=== PATIENT | female | born 1940 ===

== ENCOUNTER → 2019-04-09 | Outpatient (REF) | payer BC, MEDICARE ==
[2019-04-09 14:32] LABS: FREE T4 0.92 NG/DL (0.76-1.46)
[2019-04-09 14:34] LABS: FOLATE > 24.0 NG/ML
[2019-04-09 15:15] LABS: VITAMIN B12 LEVEL 149 PG/ML
[2019-04-13 08:09] LABS: VITAMIN E(ALPHA TOCOPHEROL) 10.2 mg/L (9.0-29.0); VITAMIN E(GAMMA TOCOPHEROL) 1.5 mg/L (0.5-4.9)
[2019-04-15 08:08] LABS: VITAMIN B1 LEVEL WHOLE BLOOD 109.5 nmol/L (66.5-200.0); VITAMIN B6,PYRIDOXAL PHOSPHATE 2.7 ug/L (2.0-32.8)
== END ==
LOC: M LABNEURO 11:06
PROVIDERS: ATTEND Psychiatry & Neurology Neurology
DX: G62.9 Polyneuropathy, unspecified (principal); E53.8 Deficiency of other specified B group vitamins

== ENCOUNTER → 2019-06-16 | Outpatient (REF) | payer BC, MEDICARE ==
[2019-06-16 14:07] LABS: BASO % 0.3 % (0.0-1.0); EOS # 0.1 10^3/uL (0.0-0.5); EOS % 1.5 % (0.0-3.0); HEMATOCRIT 39.8 % (36.0-47.0); HEMOGLOBIN 12.2 g/dl (12.0-15.5); LYMPH # 1.2 10^3/uL (1.5-5.0); LYMPH % 17.4 % (24.0-44.0); MEAN CORPUSCULAR HGB CONC 30.7 g/dl (32.0-36.5); MEAN CORPUSCULAR VOLUME 97.8 fl (80.0-96.0); MONO # 0.4 10^3/uL (0.0-0.8); MONO % 6.1 % (0.0-5.0); NEUTROPHILS # 5.1 10^3/uL (1.5-8.5); NEUTROPHILS % 74.4 % (36.0-66.0); PLATELET COUNT, AUTOMATED 207 10^3/uL (150-450); RED BLOOD COUNT 4.07 10^6/uL (4.00-5.40); WHITE BLOOD COUNT 6.9 10^3/uL (4.0-10.0)
[2019-06-22 14:10] LABS: ANTI-PARIETAL CELL ANTIBODY 6.8 Units (0.0-20.0); INTRINSIC FACTOR ANTIBODY 1.1 AU/mL (0.0-1.1)
== END ==
LOC: M LABNEURO 10:53
PROVIDERS: ATTEND Psychiatry & Neurology Neurology
DX: D51.0 Vitamin B12 deficiency anemia due to intrinsic factor deficiency (principal)

== ENCOUNTER → 2022-07-02 | Outpatient (REF) | payer OTHER, BC, MEDICARE ==
[2022-07-03 18:17] LABS: TOTAL PROTEIN,RANDOM URINE 39.4 MG/DL (0.0-14.0)
[2022-07-03 18:21] LABS: CREATININE,RANDOM URINE 201.9 MG/DL
== END ==
LOC: M LAB REF 17:05
PROVIDERS: ATTEND Internal Medicine Nephrology
DX: N18.31 Chronic kidney disease, stage 3a (principal)